=== PATIENT | male | born 1990 | race Caucasian/White ===

== ENCOUNTER 2021-08-25 15:34 | Outpatient (REF) | payer OTHER, SELFPAY ==
[2021-08-25 16:07] LABS: MANUAL DIFF FLAG NO
[2021-08-25 16:14] LABS: Basophils Percent Auto 0.5 % (0-2); Eosinophils Percent Auto 0.2 % (0-4); Hematocrit 46.3 % (42-52); Hemoglobin 16.3 g/dl (14.0-18.0); Imm Gran Abs Auto 0.01 X10*3/uL (0.00-0.03); Imm Gran Pct Auto 0.2 % (0.0-0.4); Lymphocytes Absolute Auto 1.1 X10*3/uL (1.2-4.9); Mean Corpuscular HGB Conc 35.2 g/dl (31.0-36.0); Mean Corpuscular Hemoglobin 29.8 pg (27.0-33.0); Mean Corpuscular Volume 84.6 fL (80-98); Mean Platelet Volume 10.6 fL (9.4-12.4); Monocytes Absolute Auto 0.4 X10*3/uL (0.1-1.2); Monocytes Percent Auto 8.3 % (2-11); Neutrophils Absolute Auto 2.7 X10*3/uL (2.0-8.3); Neutrophils Percent Auto 63.8 % (45-73); Platelet Count 221 X10*3/uL (160-400); Red Blood Count 5.47 X10*6/uL (4.60-5.80); White Blood Count 4.2 X10*3/uL (4.8-10.8)
[2021-08-25 16:34] LABS: Alanine Aminotransferase 17 U/L (0-40); Albumin Level 4.9 g/dL (3.5-5.0); Alkaline Phosphatase 60 U/L (39-117); Anion Gap 13 (12-20); Aspartate Amino Transferase 13 U/L (5-37); Bilirubin Total 1.4 mg/dL (0.0-1.0); Blood Urea Nitrogen 6 mg/dL (9-16); C Reactive Protein 0.11 mg/dL (< or = 0.50); Calcium 9.3 mg/dL (8.4-10.2); Carbon Dioxide 25 mmol/L (22-29); Chloride 105 mmol/L (96-108); Estimated Glomerular Filt Rate > 60; Glucose Random 109 mg/dL (60-115); Lipase 58 U/L (8-78); Potassium 3.9 mmol/L (3.3-5.1); Sodium 139 mmol/L (135-145); Total Protein 7.3 g/dL (6.5-8.0)
[2021-08-25 16:57] LABS: Free T4 (Free Thyroxine) 1.34 ng/dL (0.71-1.85); Thyroid Stimulating Hormone 0.51 uIU/mL (0.32-4.0)
== END 2021-08-25 15:35 | disposition home or self-care (01) ==
LOC: HO.LAB 15:34
PROVIDERS: PCP Internal Medicine; Visit Provider Internal Medicine
DX: R10.9 Unspecified abdominal pain (principal); R11.0 Nausea; R63.4 Abnormal weight loss
CPT/HCPCS: 36415; 80053; 83690; 84439; 84443; 85025; 86140

== ENCOUNTER 2021-08-27 10:51 | Outpatient (REF) | payer OTHER, SELFPAY ==
--- NOTE | ~2021-08-27 | FL_ITS ---
EXAMINATION: XR GI SERIES CLINICAL INFORMATION: Abdominal pain and weight loss. Rule out peptic ulcer disease COMPARISON: None TECHNIQUE: Upper GI was performed using thin and thick barium and effervescent granules. FINDINGS: The esophagus is normal-appearing. No hernia or reflux is seen. Esophageal motility is normal. The stomach and duodenum are normal. No fold thickening, mass, ulcer or stricture is seen. FLUOROSCOPY TIME: 2.2 minutes DOSE AREA PRODUCT: 22 Hess per centimeter squared. 18 saved fluoroscopic images. FL/FL upper GI series IMPRESSION: Unremarkable examination.
== END 2021-08-27 10:52 | disposition home or self-care (01) ==
LOC: HO.XRAY 10:51
PROVIDERS: PCP Internal Medicine; Visit Provider Internal Medicine
DX: R10.84 Generalized abdominal pain (principal); R63.4 Abnormal weight loss
CPT/HCPCS: 74240